=== PATIENT | male | born 1980 | race Two or more races ===

== ENCOUNTER 2019-05-20 10:49 | Emergency (ER) | payer OTHER ==
[~2019-05-20] VITALS: Ht 172.7 cm; Wt 77.1 kg
--- NOTE | 2019-05-20 11:02 | NUR ---
ED Nurse Note: Pt walked in from home d/t large laceration on left forearm. Pt was cutting a tree when he accidentally cut himself about 20 minutes ago. Respirations even and unlabored on room air. Vitals stable as documented. Pt is calm and A+Ox4.
[2019-05-20 11:04] VITALS: BP 137/80
--- NOTE | 2019-05-20 11:28 | NUR ---
ED Nurse Note: wound irrigated with saline
[2019-05-20] MEDS ORDERED: BACITRACIN15 GM TOPIC (12:11)
[2019-05-20] MEDS ORDERED: IBUPROFEN600 MG ORAL (12:11)
[2019-05-20] MEDS ORDERED: Bacitracin Oint UD TOPIC ONE (12:15)
--- NOTE | 2019-05-20 12:19 | NUR ---
ED Nurse Note: antibiotic ointment applied and wound dressed.
[2019-05-20 12:20] VITALS: BP 135/84
--- NOTE | 2019-05-20 12:20 | NUR ---
ER DISCHARGE NOTE: Patient is cleared to be discharged per ERMD, pt is aox4, on room air, with stable vital signs as documented. pt was given dc and prescription instructions and was able to verbalize understanding, pt id band removed. pt is able to ambulate with steady gait. pt took all belongings.
--- NOTE | 2019-05-20 13:49 | Emergency Room Report ---
History of Present Illness General Chief Complaint: Laceration Source: Patient Present Illness HPI 38-year-old male presents ED with laceration to left arm. States that today while cutting tree branch in his house he accidentally cut himself on the left arm. Notes multiple lacerations. Tetanus is up-to-date. Pain is dull, 8 out of 10, nonradiating. Denies any other injuries. No other aggravating relieving factors. Denies any other associated symptoms Allergies: Coded Allergies: No Known Allergies (Unverified , 05/20/19) Patient History Past Medical History: none Past Surgical History: none Pertinent Family History: none Social History: Denies: smoking, alcohol use, drug use Immunizations: UTD Reviewed Nursing Documentation: PMH: Agreed; PSxH: Agreed Nursing Documentation-PMH Past Medical History: No Stated History Review of Systems All Other Systems: negative except mentioned in HPI Physical Exam Vital Signs Date Time Temp Pulse Resp B/P (MAP) Pulse Ox O2 Delivery O2 Flow Rate FiO2 05/20/19 10:54 98.4 62 16 137/80 (99) 96 Room Air Sp02 EP Interpretation: reviewed, normal General Appearance: no apparent distress, alert, GCS 15, non-toxic Head: normocephalic Eyes: bilateral eye normal inspection, bilateral eye PERRL ENT: normal ENT inspection Neck: normal inspection Respiratory: normal inspection Cardiovascular #1: normal inspection Gastrointestinal: normal inspection Rectal: deferred Genitourinary: no CVA tenderness Musculoskeletal: back normal, normal range of motion, gait/station normal, non- tender Neurologic: alert, motor strength/tone normal, oriented x3, sensory intact, responsive, speech normal Psychiatric: normal inspection Skin: laceration - multiple lacerations to L forearm. Lymphatic: normal inspection Procedures Laceration/Wound Repair Laceration/Wound Repair : Consent: Verbal Wound Location: upper extremity Wound's Depth, Shape: linear, stellate Wound Explored: clean Betadine Prep?: No Anesthesia: 1% Lidocaine Wound Debrided: minimal Wound Repaired With: shira Layer Closure?: No Sterile Dressing Applied?: Yes Splint Applied?: No Sling Applied?: No Patient Tolerated: Well Complications: None Medical Decision Making Diagnostic Impression: Primary Impression: Laceration ER Course Hospital Course 38-year-old M presents to ED s/p laceration L forearm Clinical course Patient placed on stretcher. After initial history and physical wounds irrigated. Anesthesia provided with lidocaine. Laceration repaired with shira. w/o complication. bacitracin/Dressing applied. Discussed findings with patient. Will discharge home. Safe for discharge for close outpatient follow-up. Return to ED in 10 days for staple removal. I will provide referrals Diagnosis - laceration Stable and discharged to home with prescription for Motrin, bactracin. wound Care instructions given. Followup with PMD in 10 days for staple removal. Return to ED if any signs of infection develop Last Vital Signs Date Time Temp Pulse Resp B/P (MAP) Pulse Ox O2 Delivery O2 Flow Rate FiO2 05/20/19 12:20 98.2 90 16 135/84 97 Room Air Status: improved Disposition: HOME, SELF-CARE Condition: Stable Scripts Bacitracin (Bacitracin) 28.4 Gm Oint...g. 1 APPLIC TOPIC THREE TIMES A DAY, #28.4 GM Prov: Ge Roman MD 05/20/19 Ibuprofen* (MOTRIN*) 600 Mg Tablet 600 MG ORAL Q8H PRN for For Pain, #30 TAB 0 Refills Prov: Ge Roman MD 05/20/19 Referrals: Preeti Ansari [facility] Departure Forms: Return to Work Return to Work Date: May 22, 2019 Work Restrictions: No Heavy Lifting Patient Instructions: Laceration Care, Adult Ge Roman MD May 20, 2019 13:48
== END 2019-05-20 12:20 | disposition home or self-care (01) ==
LOC: EMR 11:16
DX: S51.812A Laceration without foreign body of left forearm, initial encounter (principal); W45.8XXA Other foreign body or object entering through skin, initial encounter; Y92.9 Unspecified place or not applicable
CPT/HCPCS: 12001; Z7502; 99283

== ENCOUNTER 2019-05-30 10:11 | Emergency (ER) | payer MEDICAID, OTHER ==
[~2019-05-30] VITALS: Ht 175.3 cm; Wt 70.3 kg
[~2019-05-30 10:11] MED LIST: BACITRACIN15 GM TOPIC; IBUPROFEN600 MG ORAL
[2019-05-30 10:14] VITALS: BP 109/59
--- NOTE | 2019-05-30 10:20 | NUR ---
ED Nurse Note: patient walked into ED from home for shira removal from his left forearm, that was placed here at [facility] ED at 05/20/19. patient denies any pain. patient is alert awake x4 ambulatory, breathing unlabored and even.
[2019-05-30] MEDS ORDERED: NEOSPORIN OINT30 GM TOPIC (10:24)
--- NOTE | 2019-05-30 10:28 | Emergency Room Report ---
History of Present Illness General Chief Complaint: Wound Recheck/Suture Removal Source: Patient Present Illness HPI Patient is a 38-year-old male denies any significant past medical history who presents to the ER for staple removal. Patient states that he cut his left arm with a chain saw 10 days ago. Patient denies any fever, discharge from the wound or chills. Allergies: Coded Allergies: No Known Allergies (Unverified , 05/20/19) Patient History Past Medical History: none Past Surgical History: none Social History: Denies: smoking, alcohol use, drug use Nursing Documentation-[facility] Past Medical History: No Stated History Review of Systems All Other Systems: negative except mentioned in HPI Physical Exam Vital Signs Date Time Temp Pulse Resp B/P (MAP) Pulse Ox O2 Delivery O2 Flow Rate FiO2 05/30/19 10:14 97.9 55 17 109/59 (76) 99 Room Air Sp02 EP Interpretation: reviewed, normal General Appearance: no apparent distress, alert, GCS 15, non-toxic Head: normocephalic, atraumatic Eyes: bilateral eye normal inspection, bilateral eye PERRL ENT: hearing grossly normal, normal pharynx, no angioedema, normal voice Neck: full range of motion, supple/symm/no masses Respiratory: chest non-tender, lungs clear, normal breath sounds, speaking full sentences Cardiovascular #1: no edema, bradycardia Cardiovascular #2: 2+ carotid (R), 2+ carotid (L), 2+ radial (R), 2+ radial (L) , 2+ dorsalis pedis (R), 2+ dorsalis pedis (L) Gastrointestinal: normal bowel sounds, non tender, soft, non-distended, no guarding, no rebound Rectal: deferred Genitourinary: normal inspection, no CVA tenderness Musculoskeletal: back normal, normal range of motion, calf tenderness, gait/ station normal, other - Left medial forearm jagged lacerations with shira in place poorly healed with no surrounding erythema or discharge and no crepitus Neurologic: alert, motor strength/tone normal, oriented x3, sensory intact, responsive, speech normal Psychiatric: judgement/insight normal, memory normal, mood/affect normal, no suicidal/homicidal ideation Skin: no rash Lymphatic: no adenopathy Medical Decision Making Diagnostic Impression: Primary Impression: Visit for suture removal ER Course Sutures removed and Steri-Strips placed for a poorly healed wound. Topical antibiotics given. After discussing risks and benefits of further diagnostics, treatment plans, as well as indications for and risks of admission, the patient is agreeable to being discharged home. I have explained that their evaluation and treatment in the emergency department today is an important step towards them achieving better health but that their evaluation today is not intended to replace further evaluation and treatment by a physician in their local clinic. I have explained that while the current findings suggest no immediate life threatening emergency they will require further evaluation and treatment by a physician of their choice in their area. They understand that it will be necessary for them to review the final reports of their ED visit with their clinic physician. We have reviewed indications for return to the Emergency Department. I have explained that additional time may need to pass and/or additional testing as an outpatient may be necessary before a definitive diagnosis can be made. They tell me they are willing to follow up as instructed within the timeframe I recommend. They appear to understand what we discussed. Additionally they understand that if they are unable to be seen by an outpatient physician they are welcome, and in fact should, return to the Emergency Department for a repeat evaluation. The patient is stable at time of discharge. Last Vital Signs Date Time Temp Pulse Resp B/P (MAP) Pulse Ox O2 Delivery O2 Flow Rate FiO2 05/30/19 10:14 97.9 55 17 109/59 99 Room Air Disposition: HOME, SELF-CARE Condition: Stable Scripts Neomycin/Polymyxin/Bacitracin* (Triple Antibiotic Ointment*) 28 Gm Oint...g. 30 GM TOPIC DAILY, #1 GM Apply a thin film (amount equal to the surface area of the fingertip) to the affected area daily. Prov: Smitha Gould M.D. 05/30/19 Referrals: [facility] Preeti Ansari [facility] Patient Instructions: Suture Removal, Care After Additional Instructions: Patient discharged in stable improved condition with outpatient follow-up and strict return precautions Smitha Gould M.D. May 30, 2019 10:27
[2019-05-30] MEDS ORDERED: Neosporin Oint Ud Pkt TOPIC ONE (10:30)
--- NOTE | 2019-05-30 10:40 | NUR ---
ED Nurse Note: shira removed by Manas Santos and dressing applied as ordered.
[2019-05-30 10:48] VITALS: BP 109/59
--- NOTE | 2019-05-30 10:49 | NUR ---
ER DISCHARGE NOTE: Patient is cleared to be discharged per ERMD DR ORTIZ, pt is aox4, on room air, with stable vital signs. pt was given dc and prescription instructions, pt was able to verbalize understanding, pt id band removed without complications. pt is able to ambulate with steady gait. pt took all belongings.
== END 2019-05-30 10:48 | disposition home or self-care (01) ==
LOC: EMR 10:47
DX: S51.812D Laceration without foreign body of left forearm, subsequent encounter (principal); W29.3XXD Contact with powered garden and outdoor hand tools and machinery, subsequent encounter; Z48.02 Encounter for removal of sutures
CPT/HCPCS: 99281